=== PATIENT | male | born 1960 | race Caucasian/White ===

== ENCOUNTER 2019-12-27 04:31 | Inpatient (IN) | payer OTHER, SELFPAY ==
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
[2019-12-27] MEDS: Promethazine 25 MG SUPP PR ×2 (08:08→20:07)
[2019-12-27] MEDS: Normal Saline Flush 10 ML SYR IVP (08:10)
[2019-12-27] MEDS: Docusate Sodium 100 MG CAP PO ×2 (08:10→20:05)
[2019-12-27] MEDS: Pantoprazole 40 MG VIAL IVP (08:10)
[2019-12-27] MEDS: LORazepam 1 MG TAB PO (11:09)
--- NOTE | 2019-12-27 12:50 | W.NUTCONSULT ---
Date of service: 12/27/19 Time of Service: 12:50 Nutritional Consult ASSESSMENT: 59 year old male with hx of being on hospice for pancreatic cancer. Admitted with vomiting, agitation and altered mental status. Following regular meal plan. Goal is to return home on hospice for end of life care. Current diet appropriate and well tolerated. Time Spent in Nutritional Counseling and Treatment: 0 time spent face to face
--- NOTE | 2019-12-27 14:20 | PDOC.CMIN ---
- If Service Date Differs Date of service: 12/27/19 Time of Service: 14:21 Care Management Initial Assess REASON FOR HOSPITALIZATION:: hospice pain management PAST MEDICAL HISTORY/PAST SURGICAL HISTORY:: pancreatic cancer PREVIOUS FUNCTIONAL STATUS/SOCIAL/FAMILY SUPPORTS:: Paco and his moved to [place] in May 2019 and live in their dream home in [place]. Unfortunately, in September Paco was diagnosed with stage IV pancreatic cancer which is inoperable. They have a son living with them and a 17 year old daugghter still in [place] completing her senior year in high school. Paco was completely independent before he became ill. CURRENT FUNCTIONAL STATUS:: Paco was sitting up in bed when CM met with him. His was with him and they both admitted to being overwhelmed with his diagnosis and the rapidity of his decline. He is getting increasingly confused and restless according to and is often in pain. He has been trying to get OOB and is unsteady on his feet and voiced that she feels he is at risk for falling. They shared that they made the decision to have Paco go on hospice and are very happy with the care and support they are receiving through [facility]. ADVANCE DIRECTIVES:: None on file Has patient been provided with information about the portal?: No Did the patient sign up for the portal?: No CODE STATUS:: DNR/DNI INSURANCE COVERAGE / FINANCIAL ISSUES:: [facility]. [facility] CURRENT HOME/COMMUNITY SERVICES/EQUIPMENT:: Paco has a walker and is on hospice PRIMARY CARE PHYSICIAN:: Becki Rodriguez PATIENT/FAMILY EDUCATION NEEDS:: Comfort and end of life care TRANSPORTATION:: via private vehicle with family PLAN:: Paco is currently on hospice undergoing medication adjustments with a goal of decreasing his pain, anxiety and restlessness. He will return home on hospice with a resumption of services. CM will continue to provide support to patient, family and discharge needs.
[2019-12-27] MEDS: traZODone 100 MG TAB PO (14:33)
--- NOTE | 2019-12-27 15:12 | CHAPLAIN ---
Paco was sitting up in his chair, trying to get comfortable, when I visited. His was encouraging him to sleep, but he wake up as soon as he nodded up. (According to the [employer] he fell asleep later this afternoon.) Anali moved to [place] with their son in May, from [place], and Paco was diagnosed with pancreatic cancer in September. is very attentive to Paco and trying to make him comfortable and encouraging him to eat. While was out of the room, but seemed a bit confused when I asked him some questions, like where there house is and when he arrived at the hospital. He did say that he had always wanted to live in [place]. Paco Hernandez and their son have been meeting with Rev. Ghada Fischer, the [facility] Chaplain from [facility], and have felt very supported by her. Ghada visited this afternoon, and is scheduled to visit their son on Thursday. At one point during our conversation, said how grateful she is for Dr. Patel's support and said she really needs Dr. Patel to come in and be the boss, because I can't do this any more. Dr. Patel stopped in briefly at lunchtime, but will be back for a longer visit at the end of the day. I will continue to visit while Paco is here.
--- NOTE | 2019-12-27 19:48 | W.PALPGNOTE ---
Date of service: 12/27/19 Assessment and Plan Assessment and plan (1) Confusion: Status: Acute Assessment and plan: persistent but improved he would like to be discharged tomorrow if he can get 8 hrs sleep in tonight, I see no problem with that if he continues to be awake, delirious, restless, may need to work on longer stay I did order quetiapine 25 mg po qhs to help him sleep he slept this afternoon with 100 mg of trazodone but only for 2.5 hrs (2) Cancer related pain: Status: Chronic Assessment and plan: off his break-through liquid morphine will work on getting fentanyl patch to proper dosing may need to switch to oral hydromorphone for break though pain (3) Delirium: Status: Acute Assessment and plan: better but still present using quetiapine over haldol tonight (4) Hospice care patient: Status: Chronic Assessment and plan: admitted to hospice program in October after he first consulted with [facility] oncology. He opted against any cancer-directed treatment. He initially was hoping for a miracle or cure from alternative therapies. now both Paco and his and Paco's kids seem to recognize that this is a terminal diagnosis He wants to go home lora. (5) Insomnia: Status: Acute Subjective Subjective Patient reports: feels better, still having pain (at a 3-4/10), tolerating liquids well, bowel movement and nausea Interval history since last seen: Paco was admitted early this am by Dr Rodriguez on hospice symptom management. He was admitted with agitation unresponsive to haldol. His morphine was held, as it was thought that he had developed opioid neurotoxicity. Since admission, he has slept minimally, only about 2.5 hrs during the day, despite being awake most of the previous 48 hrs. He has not vomited since he was transported to [facility] by ambulance. He has felt nauseated, but received some phenergan that helped. He is eating small amounts. He is up and voiding both urine and feces. He is able to walk with superivsion only. He did get some sleep with trazodone mid day. He is still confused. He kept saying he was in [place], as if [place]. He could not tell me the year he was born. He says his pain is pretty well controlled, despite stopping the liquid morphine he was using copiously for breakthrough pain. He does have 200 mcg of fentanyl patches on. Paco's , , is with him. She reports that they have a guardianship hearing coming up at [employer] on 01/09/20. This is for Paco's 2 children, one who is 17 and hopes to continue living with family friends in [place], and one is 16 and transitioning from female to male. He wants to live with , his step-mother, indefinitely. His bio mom is not supportive of his transition, per . Paco wants to go home as soon as he can. Exam Narrative Exam Narrative: He does not know what hospital he was in but was able to tell me that he was in the hospital. Const General: cooperative, no acute distress and disheveled Nutritional Appearance: average body habitus Orientation: awake Limitations: altered mental status HENMT Head: normal to inspection Ears: hearing grossly normal bilaterally and external ears normal General nose exam: external nose normal Mouth: mucous membranes dry Eyes Alignment and Position: alignment normal Eyelids: eyelids normal Conjunctivae: conjunctivae normal Pupils: PERRL Neck Neck: normal visual inspection Chest Chest: normal inspection of the chest and no tenderness Resp Effort & Inspection: normal respiratory effort and able to speak in complete sentences Auscultation: no crackles Other: decreased effort Cardio Rate: regular rate Rhythm: regular rhythm Heart Sounds: no murmurs GI Inspection: normal to inspection Palpation: soft and tender (in epigastrium) Auscultation: hypoactive bowel sounds Other: incontinent Skin Lesions: lesion noted (right anterior martin; unable to check back) Neuro General: awake Cognition: abnormal cognition Speech: abnormal speech (soft voice) Motor: movement abnormality noted Psych Appearance: disheveled Mental Status: other Speech and Movement: agitated, delayed speech and slowed movement Mood: other Affect: other (tired) Thought Process: loose association Insight: limited Judgment: limited Objective Objective Clinical Data: Vital Signs Pulse Rhythm Regular 12/27/19 07:30 Respiratory Effort Non-Labored 12/27/19 15:15 Respiratory Depth Normal 12/27/19 15:15 Respiratory Pattern Normal 12/27/19 15:15 Intake & Output 12/26/19 12/27/19 12/27/19 23:59 11:59 23:59 Intake Total 10 / 20 10 / 20 Output Total 350 / 350 Balance -340 / -330 10 / -330 Intake: IV Oral 0 / 0 Output: Urine 50 / 50 Emesis 300 / 300 Other: Urine Color Straw Yellow Urine Appearance Clear Clear Comment voids in toilet. Stool Size Moderate Stool Characteristics Soft Emesis Description Bile Voiding Methods Urinal Toilet
[2019-12-27] MEDS: Melatonin 3 MG TAB 9 MG PO (21:12)
[2019-12-27] MEDS: QUEtiapine 25 MG TAB PO (21:12)
[2019-12-28] MEDS: LORazepam 1 MG TAB PO ×3 (00:19→12:22)
[2019-12-28] MEDS: fentaNYL 100 MCG PATCH 200 MCG TD (06:57)
--- NOTE | 2019-12-28 07:05 | NUR.NOTE ---
Nursing Note: 3 Fentanyl patches removed 1 75mcg, 1 25mcg and 1 100mcg, placed in the black box witnessed by Ev Ruelas RN.
[2019-12-28 07:39] VITALS: BP 121/77; PULSE 78; RESP 12; TEMP 37; O2SAT 94
[2019-12-28] MEDS: Docusate Sodium 100 MG CAP PO (08:35)
[2019-12-28] MEDS: Pantoprazole 40 MG VIAL IVP (08:35)
[2019-12-28] MEDS: Normal Saline Flush 10 ML SYR IVP (08:35)
--- NOTE | 2019-12-28 14:27 | DSE_ITS ---
Date of service: 12/28/19 DS: Diagnosis Discharge Diagnosis (1) Confusion: Status: Acute Asessment and Plan: Improved with stopping of morphine prn. Suspected neurotoxicity from opiods. (2) Cancer related pain: Status: Chronic Asessment and Plan: Simplifying pain medications to fentanyl only for now. IF HE NEEDS to have break-through pain, recommend dilaudid over morphine for now. (3) Delirium: Status: Acute Asessment and Plan: Presuming that most of his delirium is from his medications. Does not appear to be actively dying yet. Simplifying meds. Encouraging sleep. He is not yet back to baseline. (4) Hospice care patient: Status: Chronic (5) Insomnia: Status: Acute Asessment and Plan: Will continue melatonin at home. May sleep better in more familiar territory. Discharge Plan Disposition Patient Disposition: HOME W/HOME HEALTH SERVICE Condition: Serious Discharge Details Reason For Visit: PANCREATIC CANCER Admit Date/Time: 12/27/19 04:31 Admit Provider: Becki Rodriguez Attending Provider: Becki Rodriguez Primary Care Provider: Becki Rodriguez Hospital Course Hospital Course: Admitted by Dr Rodriguez for symptom management. Primarily agitation and nausea with suspected opioid neurotoxicity. He'd been without sleep x 48 hrs prior to admission. Since admission, he has slept about 10 in last 36 hrs. He is restless. Pain is controlled on 200 mcg fentanyl. Has not required any break-through pain medications. He does have some nausea, not as bad. We are going to try to avoid most of the nausea meds at home for the next 3-4 days to help with mental clarity. Will have hospice resume care when he returns home. is feeling she can manage at home with help from hospice. Home Meds and New Rx's Prescriptions: No Action morphine concentrate 100 mg/5 mL (20 mg/mL) solution See Rx Instructions SL Q1H PRN MDD 5ml PRN (Reason: pain) Qty: 30 RF: 0 fentanyl 100 mcg/hr patch 72 hour 1 patch TD Q48H MDD 200 mcg Qty: 15 RF: 0 haloperidol lactate 2 mg/mL concentrate 2 mg PO Q60M PRN (Reason: psychosis or nausea) Qty: 15 RF: 0 Discharge Instructions Stand Alone Forms: Nursing Discharge Form Activity:: Activity as Tolerated Equipment/Supplies:: commode Diet:: As Tolerated Discharge Orders Discharge Orders: Discharge Order (Routine); Ordered 12/28/19 Ordered By: Mary Patel DS: Summary Status at Discharge Functional status at discharge: uses cane/walker Overall status at discharge: patient is not back to baseline Mental Status: other Speech and Movement: agitated, delayed speech and slowed movement Mood: other Affect: other (tired) Time Spent with Patient providing and/or coordinating discharge services: Greater than 30 minutes Specific discharge activities: Encouraged him to simplify medications. Refilled his fentanyl Did not fill hydromorphone as I do not want over use inadvertently. Suze Smith, KARINA covering hospice 12/29-01/01. Dr Rodriguez is back on 01/02. Exam Narrative Exam Narrative: He does not know what hospital he was in but was able to tell me that he was in the hospital. Const General: cooperative, no acute distress and disheveled Nutritional Appearance: average body habitus Orientation: awake Limitations: altered mental status HENMT Head: normal to inspection Ears: hearing grossly normal bilaterally and external ears normal General nose exam: external nose normal Mouth: mucous membranes dry Eyes Alignment and Position: alignment normal Eyelids: eyelids normal Conjunctivae: conjunctivae normal Pupils: PERRL Neck Neck: normal visual inspection Chest Chest: normal inspection of the chest and no tenderness Resp Effort & Inspection: normal respiratory effort and able to speak in complete sentences Auscultation: no crackles Other: decreased effort Cardio Rate: regular rate Rhythm: regular rhythm Heart Sounds: no murmurs GI Inspection: normal to inspection Palpation: soft and tender (in epigastrium) Auscultation: hypoactive bowel sounds Other: incontinent Skin Lesions: lesion noted (right anterior martin; unable to check back) Neuro General: awake Cognition: abnormal cognition Speech: abnormal speech (soft voice) Motor: movement abnormality noted Psych Appearance: disheveled Mental Status: other Speech and Movement: agitated, delayed speech and slowed movement Mood: other Affect: other (tired) Thought Process: loose association Insight: limited Judgment: limited DS: Data Vitals/I&O Vitals and I&O: Vital Signs Temperature 98.6 F 12/28/19 07:39 Temperature Source Temporal Artery Scan 12/28/19 07:39 Pulse 78 12/28/19 07:39 Pulse Rhythm Regular 12/28/19 07:18 Respiratory Rate 12 12/28/19 07:39 Respiratory Effort 12/28/19 09:46 Respiratory Depth Normal 12/28/19 09:46 Respiratory Pattern Normal 12/28/19 09:46 Blood Pressure 121/77 12/28/19 07:39 Pulse Oximetry 94 L 12/28/19 07:39 Oxygen Delivery Method Room Air 12/28/19 07:39 Oxygen Flow Rate 0 12/28/19 07:39 Pain Level 0 12/28/19 07:39 Comment 12/28/19 07:39 Intake & Output 12/27/19 12/28/19 12/28/19 23:59 11:59 23:59 Intake Total 470 / 470 Output Total 200 / 200 Balance 330 270 / 270 Intake: IV Oral 450 / 450 Output: Urine 200 / 200 Other: Urine Color Yellow Yellow Urine Appearance Clear Clear Urine Odor Normal Comment voids in toilet. Voiding Methods Toilet Toilet [facility] Medical History (Updated 12/27/19 @ 20:02 by Mary Patel MD) Cancer related pain (Chronic) Confusion (Acute) Delirium (Acute) Hospice care patient (Chronic) Insomnia (Acute) Social History (Updated 12/28/19 @ 14:33 by Mary Patel MD) Smoking/Tobacco Use Status: Former Tobacco Use Quit Date: 11/16/11 Pack-years: 30 Tobacco: How many years used: 25
[2019-12-28] MEDS: Haloperidol 1 MG TAB 2 MG PO (15:33)
--- NOTE | 2019-12-28 16:02 | CHAPLAIN ---
I checked in on and Essie couple of times today. Paco is a hospice patient who was admitted early yesterday to due to restlessness and agitation at home. said she was able to get some sleep at home late night while Paco was here. She called the hospital at midnight and 4 a.m. to check on Paco. She is very attentive to Nik and was encouraging him to nap by turning off the tv and putting on some music, although Paco said he was not interesting in sleeping. He hasn't slept much in the past couple of days. He said he wanted to go home today and was frustrated that he had to wait until between 2:00 and 4:[address] Patel to discharge him. seems willing to do whatever Paco wants to have happen. They have met Rev. Ghada Fischer, the [facility] Interfformer[facility] Incubator Machine Operator and she has visited them both days here at [facility] and will continue to meet with them at home. She is scheduled to visit with their son on Thursday. Anali moved here from [place] in May and Paco was diagnosed with pancreatic cancer in September. They have one son living at home and a daughter who stayed in [place] to finish her senior year and is living with family friends.
--- NOTE | 2019-12-28 17:14 | PDOC.CMDIS ---
- If Service Date Differs Date of service: 12/28/19 Time of Service: 17:14 LACE Index Scoring Tool - Questions: Length of Stay (in days): 2 Acuity (Admit via E.D.?): No Comorbidities: Metastatic Solid Tumor E.D. Visits: 0 - Answers: Total Score: 7 Risk of Readmission: Low Risk Care Management Discharge Reason for Hospitalization: hospice pain management Discharge Plan: Paco will be discharged home and return to hospice care. He will be followed by the hospice providers and follow their plan of care. Patient/Family Education Needs: End of life and comfort care.
== END 2019-12-28 15:40 | disposition home health service (06) | DRG 948 ==
PROVIDERS: Admitting Provider Family Medicine; PCP Family Medicine; Visit Provider Family Medicine
DX: G89.3 Neoplasm related pain (acute) (chronic) (principal); C25.9 Malignant neoplasm of pancreas, unspecified; R45.1 Restlessness and agitation; R11.2 Nausea with vomiting, unspecified; R45.5 Hostility; R41.82 Altered mental status, unspecified; T40.2X5A Adverse effect of other opioids, initial encounter; Z66 Do not resuscitate; Z51.5 Encounter for palliative care; G47.00 Insomnia, unspecified
CPT/HCPCS: 99233; 99239; NC